=== PATIENT | female | born 1970 | race Caucasian/White ===

== ENCOUNTER 2022-12-17 09:19 | Emergency (ER) | payer MEDICAID ==
[~2022-12-17] VITALS: Ht 162.6 cm; Wt 90.7 kg
[2022-12-17 09:32] VITALS: BP 178/84; PULSE 89; RESP 18; TEMP 97.6; O2SAT 98
[2022-12-17 10:15] VITALS: BP 157/76; RESP 18; TEMP 97.6
[2022-12-17] MEDS ORDERED: IBUPROFEN 600 MG TAB PO ONE (10:25)
[2022-12-17 10:33] VITALS: PULSE 68
[2022-12-17 12:12] VITALS: O2SAT 100
[2022-12-17 12:28] LABS: BASOPHILS # (AUTO) 0.1 K/uL (0.00-0.22); BASOPHILS % (AUTO) 1.7 % (0.0-2.0); EOSINOPHILS # (AUTO) 0.2 K/uL (0-0.4); EOSINOPHILS % (AUTO) 3.5 % (0.0-4.0); HEMATOCRIT 37.3 % (36-48); HEMOGLOBIN 12.1 g/dL (12.0-16.0); LYMPHOCYTES # (AUTO) 1.8 K/uL (2.5-16.5); LYMPHOCYTES % (AUTO) 30.8 % (20.5-51.1); MEAN CORPUSCULAR HEMOGLOBIN 26 pg (27-31); MEAN CORPUSCULAR HGB CONC 33 g/dL (33-37); MEAN CORPUSCULAR VOLUME 80.3 fL (80-94); MONOCYTES # (AUTO) 0.4 K/uL (0.8-1.0); MONOCYTES % (AUTO) 7.7 % (1.7-9.3); NEUTROPHILS # (AUTO) 3.2 K/uL (1.8-7.7); NEUTROPHILS % (AUTO) 56.3 % (42.2-75.2); PLATELET COUNT (AUTO) 281 K/uL (140-450); RED BLOOD CELL COUNT(AUTO) 4.64 MIL/uL (4.20-5.40); RED CELL DISTRIBUTION WIDTH 15.1 % (11.6-13.7); WHITE BLOOD COUNT (AUTO) 5.8 K/uL (4.8-10.8)
[2022-12-17 13:19] LABS: ALBUMIN 3.7 g/dL (3.4-5.0); ANION GAP 10.8 (8-16); CARBON DIOXIDE 29.2 mmol/L (21-32); CREATININE 0.6 mg/dL (0.6-1.3); TOTAL BILIRUBIN 0.3 mg/dL (0.0-1.0); TOTAL PROTEIN, SERUM 7.5 g/dL (6.4-8.2)
[2022-12-17 13:31] LABS: D-DIMER < 100 ng/ml (0-400)
[2022-12-17 14:14] VITALS: O2SAT 100
[2022-12-17 16:46] LABS: INR 0.94 (0.8-1.2); PARTIAL THROMBOPLASTIN TIME 27.8 secs (22-35.6)
[2022-12-17 16:47] LABS: PROTHROMBIN TIME 9.9 secs (10.8-13.4)
== END 2022-12-17 14:45 | disposition home or self-care (01) ==
LOC: MED 09:19
DX: R06.02 Shortness of breath (principal); R07.9 Chest pain, unspecified; M54.6 Pain in thoracic spine; Z98.890 Other specified postprocedural states
CPT/HCPCS: 36415; 71045; 80053; 83880; 84484; 85025; 85379; 85610; 85730; 93005; 99285

== ENCOUNTER 2023-08-07 10:39 | Emergency (ER) | payer MEDICAID ==
[~2023-08-07] VITALS: Ht 160 cm; Wt 97.5 kg
[2023-08-07 10:40] VITALS: BP 150/88; RESP 18; TEMP 97; O2SAT 99
[2023-08-07] MEDS ORDERED: CEPH-588 PO (11:38)
[2023-08-07 11:46] VITALS: BP 150/88; RESP 18; TEMP 97; O2SAT 99
== END 2023-08-07 11:48 | disposition home or self-care (01) ==
LOC: MED 10:39
DX: L03.116 Cellulitis of left lower limb (principal); R03.0 Elevated blood-pressure reading, without diagnosis of hypertension
CPT/HCPCS: 99283

== ENCOUNTER 2023-10-29 10:46 | Emergency (ER) | payer MEDICAID ==
[~2023-10-29] VITALS: Ht 160 cm; Wt 99.8 kg
[~2023-10-29 10:46] MED LIST: CEPH-588 PO
[2023-10-29 10:53] VITALS: BP 155/73; PULSE 66; RESP 20; TEMP 98.4; O2SAT 100
[2023-10-29 11:33] LABS: BASOPHILS % (AUTO) 0.6 % (0.0-2.0); EOSINOPHILS # (AUTO) 0.1 K/uL (0-0.4); EOSINOPHILS % (AUTO) 2.4 % (0.0-4.0); HEMATOCRIT 38.9 % (36-48); HEMOGLOBIN 12.6 g/dL (12.0-16.0); LYMPHOCYTES # (AUTO) 1.6 K/uL (2.5-16.5); LYMPHOCYTES % (AUTO) 31.1 % (20.5-51.1); MEAN CORPUSCULAR HEMOGLOBIN 26 pg (27-31); MEAN CORPUSCULAR HGB CONC 32 g/dL (33-37); MEAN CORPUSCULAR VOLUME 80.5 fL (80-94); MONOCYTES # (AUTO) 0.3 K/uL (0.8-1.0); MONOCYTES % (AUTO) 5.5 % (1.7-9.3); NEUTROPHILS # (AUTO) 3.2 K/uL (1.8-7.7); NEUTROPHILS % (AUTO) 60.4 % (42.2-75.2); PLATELET COUNT (AUTO) 278 K/uL (140-450); RED BLOOD CELL COUNT(AUTO) 4.83 MIL/uL (4.20-5.40); RED CELL DISTRIBUTION WIDTH 14.4 % (11.6-13.7); WHITE BLOOD COUNT (AUTO) 5.3 K/uL (4.8-10.8)
[2023-10-29] MEDS: MECLIZINE 25 MG TAB PO ONE (11:35)
[2023-10-29 11:48] LABS: CALCIUM 8.8 mg/dL (8.5-10.1); CARBON DIOXIDE 26.8 mmol/L (21-32); CREATININE 0.7 mg/dL (0.6-1.3); POTASSIUM 3.8 mmol/L (3.5-5.1)
[2023-10-29 12:02] LABS: ALANINE AMINOTRANSFERASE 35 U/L (12-78); ALBUMIN 3.6 g/dL (3.4-5.0); ALKALINE PHOSPHATASE 91 U/L (50-136); ASPARTATE AMINOTRANSFERASE 17 U/L (15-37); BILIRUBIN,DIRECT 0.1 mg/dL (0.0-0.3); TOTAL BILIRUBIN 0.3 mg/dL (0.0-1.0); TOTAL PROTEIN, SERUM 7.7 g/dL (6.4-8.2)
[2023-10-29 12:26] LABS: THYROID STIMULATING HORMONE 0.84 uIU/mL (0.34-3.74)
[2023-10-29] MEDS ORDERED: ONDANSETRON 4 MG/2 ML VIAL ONE (12:52)
[2023-10-29] MEDS ORDERED: MECLIZINE 25 MG TAB ONE (12:52)
[2023-10-29] MEDS: ONDANSETRON 4 MG/2 ML VIAL IVP ONE (13:24)
[2023-10-29] MEDS: NACL 0.9% 1,000 ML IV ONE (13:36)
[2023-10-29 13:38] VITALS: O2SAT 98
[2023-10-29 13:40] LABS: APPEARANCE,URINE CLEAR (CLEAR); BILIRUBIN,URINE NEGATIVE (NEGATIVE); BLOOD, URINE NEGATIVE (NEGATIVE); COLOR,URINE YELLOW (YELLOW); LEUKOCYTE ESTERASE ,URINE NEGATIVE (NEGATIVE); NITRITE, URINE NEGATIVE (NEGATIVE); PROTEIN,URINE NEGATIVE (NEGATIVE); UGLUCOSE NEGATIVE (NEGATIVE); UROBILINOGEN,URINE 0.2 EU/dL (0.2 - 1)
[2023-10-29] MEDS: diazePAM 5 MG TAB PO ONE (16:07)
[2023-10-29 19:41] VITALS: BP 122/66; PULSE 61; RESP 16; TEMP 98.2; O2SAT 97
== END 2023-10-29 19:40 | disposition short-term general hospital (02) ==
LOC: MED 10:46
DX: R42 Dizziness and giddiness (principal); R53.1 Weakness; Z79.899 Other long term (current) drug therapy
CPT/HCPCS: 36415; 70450; 70496; 70498; 71045; 80048; 80076; 81003; 82948; 84443; 84484; 85025; 93005; 96361; 96374; 99285; J2405; J7030; J8597; Q9967